=== PATIENT | female | born 1955 | race Caucasian/White ===

== ENCOUNTER 2020-07-20 07:30 | Outpatient (CLI) | payer BC, SELFPAY ==
--- NOTE | ~2020-07-20 | MM_ITS ---
EXAMINATION: MM screening alana BI w chi HISTORY: Screening TECHNIQUE: Craniocaudal and mediolateral oblique 3-D tomosynthesis images were obtained and synthetic 2-D images were generated. CAD analysis was submitted and interpreted. COMPARISON: Comparison to multiple prior studies sequentially, with oldest reviewed study dated 05/14. BREAST PARENCHYMAL COMPOSITION: There are scattered areas of fibroglandular density. FINDINGS: There is no evidence of suspicious mass, calcification, or architectural distortion to sugg est malignancy in either breast. There has been no suspicious interval change. IMPRESSION: 1. No mammographic evidence of malignancy. 2. Recommend routine screening mammography in one year. BI-RADS Category 1: Negative Reviewed, dictated and finalized at location A. GER
== END 2020-07-20 07:31 | disposition home or self-care (01) ==
PROVIDERS: PCP Physician Assistant; Visit Provider Physician Assistant
DX: Z12.31 Encounter for screening mammogram for malignant neoplasm of breast (principal)
CPT/HCPCS: 77063; 77067

== ENCOUNTER → 2020-09-23 10:57 | Outpatient (CLI) | payer BC, SELFPAY ==
--- NOTE | ~2020-09-23 | XR_ITS ---
EXAMINATION: XR shoulder RT min 2V DATE: 09/23/2020 11:14 INDICATION: Chronic right shoulder pain. TECHNIQUE: 4 views of right shoulder were obtained. COMPARISON: None. FINDINGS: Bone alignment is normal. No fracture. There is mild osteoarthritis of glenohumeral joint a nd acromioclavicular joint. IMPRESSION: 1. Polyarticular osteoarthritis. Reviewed, dictated and finalized at location A. VENEER TAPER
== END ==
PROVIDERS: PCP Physician Assistant; Visit Provider Physician Assistant
DX: M19.011 Primary osteoarthritis, right shoulder (principal)
CPT/HCPCS: 73030

== ENCOUNTER 2021-10-08 08:34 | Outpatient (CLI) | payer BC, SELFPAY ==
--- NOTE | ~2021-10-08 | MM_ITS ---
EXAMINATION: MM screening [facility] BI w chi HISTORY: Screening mammogram TECHNIQUE: Craniocaudal and mediolateral oblique 3-D tomosynthesis images were obtained and synthetic 2-D images were generated. CAD analysis was submitted and interpreted. COMPARISON: Serial mammograms dating back to 05/28/2013. BREAST PARENCHYMAL COMPOSITION: There are scattered areas of fibroglandular density. FINDINGS: There is asymmetry in the lower left breast on MLO view. Diagnostic left mammogram is recom mended, with ultrasound if required. Otherwise there is no evidence of suspicious mass, calcification, or architectural distortion to sugg est malignancy in either breast. There has been no other suspicious interval change. IMPRESSION: 1. Left mammographic asymmetry 2. Diagnostic left mammogram is recommended, with ultrasound if required BI-RADS Category 0: Incomplete: Needs additional imaging evaluation. Reviewed, dictated and finalized at location A. INE BINDING FOLDER
== END 2021-10-08 08:35 | disposition home or self-care (01) ==
LOC: ANHIMG 08:36
PROVIDERS: PCP Physician Assistant; Visit Provider Physician Assistant
DX: Z12.31 Encounter for screening mammogram for malignant neoplasm of breast (principal); R92.8 Other abnormal and inconclusive findings on diagnostic imaging of breast
CPT/HCPCS: 77063; 77067

== ENCOUNTER 2021-11-12 00:40 | Day surgery (SDC) | payer BC, SELFPAY ==
[2021-11-01 14:56] VITALS: BMI 26.7
--- NOTE | 2021-11-12 07:35 | WPDANESEPPF ---
Anes - Initial Pre Proc Eval Procedure: Operation Date: 11/12/21 08:30 Proposed Procedures p Screening Colonoscopy - Rojelio Rae MD Date/Time: 11/12/21 07:35 Surgeon: Rojelio Rae MD Pre Op Diagnosis: neoplasm screening, hx of colon polyps Patient Data Age: 66 Gender: F Height: 1.65 m Weight: 73 kg Allergies Allergy/AdvReac Type Severity Reaction Status Date / Time erythromycin base Allergy Severe Nausea and Verified 11/12/21 07:40 Vomiting meperidine Allergy Severe Dizziness, Verified 11/12/21 07:40 Hot flashes, N/V Home Medications Medication Instructions Recorded Confirmed Type ascorbic acid (vitamin C) 500 mg PO DAILY 11/01/21 11/12/21 History cholecalciferol (vitamin D3) 25 mcg PO DAILY 11/01/21 11/12/21 History [Vitamin D3] coQ10 (ubiquinol) 200 mg PO DAILY 11/01/21 11/12/21 History risankizumab-rzaa [Skyrizi] See Rx Instructions .ROUTE .COMPLEX 11/01/21 11/12/21 History rosuvastatin 20 mg PO DAILY 11/01/21 11/12/21 History Patient hx anesthesia problems: none Family hx anesthesia problems: none Results Review: All pre-operative results and documents have been reviewed as part of the pre-operative evaluation. [facility] Past Medical History Medical History (Updated 11/12/21 @ 07:50 by Rojelio Rae MD) Hyperlipidemia Overweight (BMI 25.0-29.9) Psoriatic arthritis Social History Social History Smoking status: Former smoker Tobacco type: cigarettes Alcohol intake: current Alcohol use details: 2 drinks monthly Living arrangements: alone Spiritual care concerns: No Anes - Eval Final PreProcedure Day of Procedure 11/12/21 07:35 Patient weight: overweight Heart: regular rate and rhythm Lungs: clear to auscultation and normal air movement Airway: Mallampati scale class II Neurological: alert and oriented Last oral intake: >/= 8 hours ASA classification: II Emergent: no Anesthetic plan: proceed Anesthesia type and monitoring: general GIVS Results Review: All pre-operative results and documents have been reviewed as part of the pre-operative evaluation. Informed Consent: The patient's anesthetic plan and its attendant risks and benefits were discussed with the patient/family/POA. Questions were solicited and answers provided to the satisfaction of the patient/family/POA.
[2021-11-12 07:41] VITALS: BP 124/66; PULSE 77; RESP 16; TEMP 37.1; O2SAT 98
--- NOTE | 2021-11-12 07:49 | WPDGICN ---
Assessment and Plan Assessment and plan (1) Colon cancer screening: Code(s): Z12.11 - Encounter for screening for malignant neoplasm of colon Status: Acute Assessment and Plan: Colonoscopy with possible biopsy or polypectomy or cautery or injection of substances. (2) Personal history of colonic polyps: Code(s): Z86.010 - Personal history of colonic polyps Status: Acute GI Consult Note Consult date/time: 11/12/21 07:49 HPI: Candy Camp is a 66 year old female referred for colon cancer screening. She had an adenomatous polyp removed about 5 years ago. She has had no significant change in bowel habits nor blood in the stools. Review of Systems Review of Systems: All systems reviewed & are unremarkable except as noted in HPI and below PMFSH Past Medical History Medical History (Updated 11/12/21 @ 07:50 by Rojelio Rae MD) Hyperlipidemia Overweight (BMI 25.0-29.9) Psoriatic arthritis Social History Social History Smoking status: Former smoker Tobacco type: cigarettes Alcohol intake: current Alcohol use details: 2 drinks monthly Living arrangements: alone Spiritual care concerns: No Meds Home Medications and Allergies Home Medications Medication Instructions Recorded Confirmed Type ascorbic acid (vitamin C) 500 mg PO DAILY 11/01/21 11/12/21 History cholecalciferol (vitamin D3) 25 mcg PO DAILY 11/01/21 11/12/21 History [Vitamin D3] coQ10 (ubiquinol) 200 mg PO DAILY 11/01/21 11/12/21 History risankizumab-rzaa [Skyrizi] See Rx Instructions .ROUTE .COMPLEX 11/01/21 11/12/21 History rosuvastatin 20 mg PO DAILY 11/01/21 11/12/21 History Allergies Allergy/AdvReac Type Severity Reaction Status Date / Time erythromycin base Allergy Severe Nausea and Verified 11/12/21 07:40 Vomiting meperidine Allergy Severe Dizziness, Verified 11/12/21 07:40 Hot flashes, N/V Vital Signs Vital Signs - 24 hr 11/12/21 07:41 Temperature 37.1 C Pulse Rate 77 Respiratory Rate 16 Blood Pressure 124/66 Pulse Oximetry 98 Exam Const: General: alert Orientation/consciousness: patient oriented x3 Resp: Auscultation: clear to auscultation bilaterally Cardio: Rhythm: regular rhythm GI: GI Palp: Yes Soft to palpation and No Tenderness to palpation present (GI) Neuro: General: patient oriented x3
[2021-11-12] MEDS: LACTATED RINGERS 1,000 ML 150 ML IV CONT (07:51)
[2021-11-12 08:35] VITALS: BP 111/69; PULSE 74; RESP 22; O2SAT 100
[2021-11-12 08:45] VITALS: BP 112/67; PULSE 69; RESP 19; O2SAT 100
[2021-11-12 08:55] VITALS: BP 104/65; PULSE 69; RESP 19; O2SAT 99
== END 2021-11-12 09:09 | disposition home or self-care (01) ==
PROVIDERS: PCP Physician Assistant; Visit Provider Internal Medicine Gastroenterology
PROC: 0DJD8ZZ Inspection of Lower Intestinal Tract, Via Natural or Artificial Opening Endoscopic (ICD-10-PCS; CPT 45378; principal; 2021-11-12 08:30)
DX: Z12.11 Encounter for screening for malignant neoplasm of colon (principal); D12.3 Benign neoplasm of transverse colon; Z80.0 Family history of malignant neoplasm of digestive organs; E78.5 Hyperlipidemia, unspecified; L40.50 Arthropathic psoriasis, unspecified; Z87.891 Personal history of nicotine dependence
CPT/HCPCS: 45385; 45380; 88305; J2704; J7120

== ENCOUNTER 2021-11-19 13:52 | Outpatient (CLI) | payer BC, SELFPAY ==
--- NOTE | ~2021-11-19 | MMUS_ITS ---
EXAMINATION: MM diagnostic alana LT w chi, US breast LT limited HISTORY: Follow-up left breast asymmetry TECHNIQUE: Additional 3-D tomosynthesis images of the left breast were performed and synthetic 2-D im ages were generated. CAD analysis was submitted and interpreted. High resolution Limited left breast ultrasound was performed. COMPARISON: Comparison to multiple prior studies sequentially, with oldest reviewed study dated 08/26. BREAST PARENCHYMAL COMPOSITION: Breast composed of scattered areas of fibroglandular density. FINDINGS: MAMMOGRAPHIC FINDINGS: There are no suspicious masses, calcifications or architectural distortion in the left breast to sugg est malignancy. ULTRASOUND: Limited left breast ultrasound: Normal heterogeneous echotexture without focal mass. IMPRESSION: 1. No evidence for malignancy in the left breast. 2. Routine yearly screening mammogram and regular clinical breast examination are recommended. BI-RADS Category 1: Negative Reviewed, dictated and finalized at location A. IMPRESSION: 1. No evidence for malignancy in the left breast. 2. Routine yearly screening mammogram and regular clinical breast examination a re recommended. BI-RADS Category 1: Negative
== END 2021-11-19 13:53 | disposition home or self-care (01) ==
PROVIDERS: PCP Physician Assistant; Visit Provider Physician Assistant
DX: R92.8 Other abnormal and inconclusive findings on diagnostic imaging of breast (principal)
CPT/HCPCS: 76642; 77061; 77065; G0279

== ENCOUNTER 2023-03-17 09:45 | Outpatient (CLI) | payer OTHER, SELFPAY ==
--- NOTE | ~2023-03-17 | DEXA_ITS ---
Bone Density Report Name: HECTOR TA Age: 67 Sex: Female Ethnicity: White Date of : 1955 Indication: postmenopausal; screening for osteoporosis; Referring Provider: RENZO, ALICE Study: Bone densitometry was performed. Exam Date: March 17, 2023 Accession number: [id number] Bone Density: Region BMD T-score Z-score Classification AP Spine(L1-L4) 1.031 -0.1 1.8 Normal Femoral Neck (Left) 0.675 -1.6 0.0 Osteopenia Total Hip (Left) 0.857 -0.7 0.6 Normal Femoral Neck (Right) 0.666 -1.6 0.0 Osteopenia Total Hip (Right) 0.852 -0.7 0.6 Normal Total Hip Mean 0.855 -0.7 0.6 Normal World Health Organization criteria for BMD impression classify patients as: Normal (T-score at or above -1.0), Osteopenia (T-score between -1.0 and -2.5), or Osteoporosis (T-score at or below -2.5). 10-year Fracture Risk(1): Major Osteoporotic Fracture 9.7% Hip Fracture 1.2% Reported Risk Factors: [place] (), Neck BMD=0.666, BMI=26.6 (1) FRAX(R) Version 3.08. Fracture probability calculated for an untreated patient. Fracture probability may be lower if the patient has received treatment. Clinical Information Provided by Patient: Has used the following medications: Vitamin D Patient maximum height was 65.0 Menopause Age: 46 No regular weight bearing exercise Onset of menses at age 15 Number of children 1 Impression: The patient has low bone mass, based on the Left Femoral Neck T-score. The patient has an estimated ten-year risk of hip fracture of 1.2% and an estimated ten-year risk of major fracture of 9.7%, based on the WHO FRAX algorithm. Discussion: BONE DENSITY IS LOW AT ONE OR MORE SKELETAL SITES. This patient's lowest T-score is low at one or more skeletal sites. It meets the World Health Organization's (WHO) criteria for ?low bone mass? (T-score between -1.0 and -2.5). The patient's 10-year risk of fracture as calculated by FRAX is less than the threshold where pharmacological therapy is recommended by the National Osteoporosis Foundation (NOF). However, all treatment decisions require clinical judgment and consideration of individual patient factors, including patient preferences, comorbidities, previous drug use, risk factors not captured in the FRAX model (e.g., frailty, falls, vitamin D deficiency, increased bone turnover, interval significant decline in bone density) and possible under or overestimation of fracture risk by FRAX. The patient should follow a healthful lifestyle (good nutrition with adequate calcium and vitamin D, and appropriate weight-bearing exercise). Follow-Up: Consider repeating this study in 2 to 3 years to reassess this patient's status, or sooner if there is some new clinical indication. Reported by: LOUISE on 03/17/2023 10:18:00 AM.
--- NOTE | ~2023-03-17 | MM_ITS ---
EXAMINATION: MM screening alana BI w chi HISTORY: Screening mammogram TECHNIQUE: Craniocaudal and mediolateral oblique 3-D tomosynthesis images were obtained and synthetic 2-D images were generated. CAD analysis was submitted and interpreted. COMPARISON: November 19, 2021 diagnostic left mammogram and limited left breast ultrasound examination October 08, 2021, 07/20/2020 bilateral screening mammogram examinations BREAST PARENCHYMAL COMPOSITION: There are scattered areas of fibroglandular density. FINDINGS: There is no evidence of suspicious mass, calcification, or architectural distortion to sugg est malignancy in either breast. There has been no suspicious interval change. IMPRESSION: 1. No mammographic evidence of malignancy. 2. Recommend routine screening mammography in one year. BI-RADS Category 1: Negative Reviewed, dictated and finalized at location A.
== END 2023-03-17 09:46 | disposition home or self-care (01) ==
LOC: ANHIMG 09:47
PROVIDERS: PCP Physician Assistant; Visit Provider Physician Assistant
DX: Z12.31 Encounter for screening mammogram for malignant neoplasm of breast (principal); Z78.0 Asymptomatic menopausal state; M85.852 Other specified disorders of bone density and structure, left thigh; M85.851 Other specified disorders of bone density and structure, right thigh
CPT/HCPCS: 77063; 77067; 77080

== ENCOUNTER 2024-03-20 09:36 | Outpatient (CLI) | payer OTHER, SELFPAY ==
--- NOTE | ~2024-03-20 | MM_ITS ---
EXAMINATION: MM screening alana BI w chi HISTORY: Screening TECHNIQUE: Craniocaudal and mediolateral oblique 3-D tomosynthesis images were obtained and synthetic 2-D images were generated. CAD analysis was submitted and interpreted. COMPARISON: Comparison to multiple prior studies sequentially, with oldest reviewed study dated 02/03. BREAST PARENCHYMAL COMPOSITION: Not dense: There are scattered areas of fibroglandular density. FINDINGS: There is no evidence of suspicious mass, calcification, or architectural distortion to sugg est malignancy in either breast. There has been no suspicious interval change. IMPRESSION: 1. No mammographic evidence of malignancy. 2. Recommend routine screening mammography in one year. BI-RADS Category 1: Negative Reviewed, dictated and finalized at location B.
== END 2024-03-20 09:37 | disposition home or self-care (01) ==
LOC: ANHIMG 09:39
PROVIDERS: PCP Physician Assistant; Visit Provider Physician Assistant
DX: Z12.31 Encounter for screening mammogram for malignant neoplasm of breast (principal)
CPT/HCPCS: 77063; 77067

== ENCOUNTER 2025-04-17 07:24 | Outpatient (CLI) | payer MEDICARE, SELFPAY ==
--- OUTSIDE RECORDS SUMMARY | 1999-08-17 08:00 | XMS_ITS | Continuity of Care Document ---
Author Organization [facility] Address [address] [place] [address] Phone Care Team Providers Care Meat And Poultry Inspector Name Role Phone Sasha Brooks Unavailable Unavailable Advance Directives Directive Yes / No Effective Date File Name No Information Encounters Encounter Description Practice Location Reason(s) For Visit Diagnoses Date Provider Providers Copied on Encounter [facility], [address], [place], [place], [id number], [place] tel:[phone] [facility] No Information [phone] Cecilia Baez. [address] , [address], [place], [address], [place]. tel:[phone] Family History Family Member Type Diagnosis Age At Onset No Information Payers Payer name Insurance type Covered republican ID Authormollya sharmila(s) [employer] SOI CI [id number] Social History Type Description Quantity Date Captured Comments Sex Female Smoking Status No Information Chief Complaint And Reason For Visit No Information Reason For Referral Reason For Referral No Information History Of Present Illness Encounter Date Complaint History Of Prese nt Illness No Information Functional Status Date Functional Assessmen t No Information Instructions Date Instruction Additional Infor mation No Information Assessments Type Assessment Date No Information Patient Care Teams Name Effective Dates (start - stop) Status Members No Information
--- NOTE | ~2025-04-17 | MM_ITS ---
EXAMINATION: MM screening [facility] BI w [facility] HISTORY: Screening TECHNIQUE: Craniocaudal and mediolateral oblique 3-D tomosynthesis images were obtained and synthetic 2-D images were generated. CAD analysis was submitted and interpreted. COMPARISON: Mammograms from 03/20/2024 and 03/17/2023 BREAST PARENCHYMAL COMPOSITION: There are scattered areas of fibroglandular density. FINDINGS: There is no evidence of suspicious mass, calcification, or architectural distortion to suggest malignancy. There has been no suspicious interval change. IMPRESSION: 1. No mammographic evidence of malignancy. Recommend routine screening mammography in one year. BI-RADS Category 2: Benign finding(s) Reviewed, dictated and finalized at location Q. IMPRESSION: 1. No mammographic evidence of malignancy. Recommend routine screening mammogra phy in one year. BI-RADS Category 2: Benign finding(s)
--- OUTSIDE RECORDS SUMMARY | 2025-04-17 07:32 | XMS_ITS | Encounter Summary ---
Author Organization [facility] Facility Care Team Providers Care Rope Walker Name Role Phone Elda Dent Primary Care Provider [phone]- [phone] Encounter Details Date Type Department Care Team (Latest Contact Info) Description 08/10/2016 Orders Only MMG CLINCONV ProviderJoann MD [address] [place] [address] Social History Tobacco Use Types Packs/Day Years Used Date Smoking Tobacco: Former Comments Unknown Sex and Gender Information Value Date Recorded Sex Assigned at Not on file Legal Sex Female 8:55 PM CONSTRUCTION CONTRACTOR Gender Identity Not on file Sexual Orientation Not on file documented as of this encounter Plan of Treatment Not on file documented as of this encounter Procedures Procedure Name Priority Date/Time Associated Diagnosis Comments COLONOSCOPY - SCAN 08/10/2016 12 :00 AM CONSTRUCTION CONTRACTOR documented in this encounter Results * COLONOSCOPY - SCAN (08/10/2016 12:00 AM CONSTRUCTION CONTRACTOR) Narrative 08/10/2016 12:00 AM CONSTRUCTION CONTRACTOR Ordered by an unspecified provider. Historical Provider Final Res ult documented in this encounter Visit Diagnoses Not on filedocumented in this encounter Additional Health Concerns Infection Onset Date Last Indicated Resolved Time COVID: Suspected 03/05/2020 03/05/2020 03/19/2020 3:07 AM CDT COVID: Suspected 06/30/2020 06/30/2020 07/01/2020 6:51 PM CONSTRUCTION CONTRACTOR Respiratory Infection (PROSPER), contact + droplet Comment:Automatically added due to negative COVID-19 result. 07/01/2020 07/01/2020 07/15/2020 3:0 8 AM CONSTRUCTION CONTRACTOR COVID: Suspected 11/08/2023 11/08/2023 11/08/2023 12:44 PM CDT COVID: Suspected 12/22/2023 12/22/2023 12/22/2023 11:37 AM CDT documented as of this encounter Care Teams Rope Walker Relationship Specialty Start Date End Date Elda Dent PA [address] [facility] [address] [place] [address] PCP - General Internal Medicine 01/09/19 documented as of this encounter
--- OUTSIDE RECORDS SUMMARY | 2025-04-17 07:32 | XMS_ITS | Encounter Summary ---
Author Organization [facility] Facility Care Team Providers Care Test Engine Operator Name Role Phone Elda Dent Primary Care Provider +1- [phone] Encounter Details Date Type Department Care Team (Latest Contact Info) Description 07/11/2016 Orders Only MMG CLINCONV ProviderJoann MD [address] [place] [address] Social History Tobacco Use Types Packs/Day Years Used Date Smoking Tobacco: Former Comments Unknown Sex and Gender Information Value Date Recorded Sex Assigned at Not on file Legal Sex Female 8:55 PM SHEAR GRINDER OPERATOR HELPER Gender Identity Not on file Sexual Orientation Not on file documented as of this encounter Plan of Treatment Not on file documented as of this encounter Procedures Procedure Name Priority Date/Time Associated Diagnosis Comments COLONOSCOPY - SCAN 07/11/2016 12 :00 AM SHEAR GRINDER OPERATOR HELPER documented in this encounter Results * COLONOSCOPY - SCAN (07/11/2016 12:00 AM SHEAR GRINDER OPERATOR HELPER) Narrative 07/11/2016 12:00 AM SHEAR GRINDER OPERATOR HELPER Ordered by an unspecified provider. Historical Provider Final Res ult documented in this encounter Visit Diagnoses Not on filedocumented in this encounter Additional Health Concerns Infection Onset Date Last Indicated Resolved Time COVID: Suspected 03/05/2020 03/05/2020 03/19/2020 3:07 AM CDT COVID: Suspected 06/30/2020 06/30/2020 07/01/2020 6:51 PM SHEAR GRINDER OPERATOR HELPER Respiratory Infection (PROSPER), contact + droplet Comment:Automatically added due to negative COVID-19 result. 07/01/2020 07/01/2020 07/15/2020 3:0 8 AM SHEAR GRINDER OPERATOR HELPER COVID: Suspected 11/08/2023 11/08/2023 11/08/2023 12:44 PM CDT COVID: Suspected 12/22/2023 12/22/2023 12/22/2023 11:37 AM CDT documented as of this encounter Care Teams Test Engine Operator Relationship Specialty Start Date End Date Elda Dent PA [address] [facility] [address] [place] [address] PCP - General Internal Medicine 01/09/19 documented as of this encounter
--- OUTSIDE RECORDS SUMMARY | 2025-04-17 07:32 | XMS_ITS | Encounter Summary ---
Author Organization [facility] Healthcare Address [address] [place] [address] Care Team Providers Care Corporate Strategist Name Role Phone Elda Dent Primary Care Provider +1- [phone] Encounter Details Date Type Department Care Team (Latest Contact Info) Description 03/20/2025 Results Follow-Up [facility] Medical [facility] Family Medicine [address] [place] [address] Elda Dent PA [address] [place] [address] XR Spine Thoracic 3 Vw, XR Spine Cervical Complete 4 Or 5 Vw, Comprehensive metabolic panel, Additional followed-up results: 7 Social History Tobacco Use Types Packs/Day Years Used Date Smoking Tobacco: Former Cigarettes Q uit: 2001 Smokeless Tobacco: Never Alcohol Use Standard Drinks/Week Comments Yes 0 (1 standard drink = 0.6 oz pur e alcohol) AUDIT-C Answer Date Recorded Q1: How often do you have a drink containing alc ohol? Monthly or less 01/15/2025 Q2: How many drinks containi ng alcohol do you have on a typical day when you are drinking? 1 or 2 01/15/2025 Q3: How often do you have si x or more drinks on one occasion? Less than monthly 01/15/2025 PHQ-2 Answer Date Recorded PHQ-2 Total Score 0 01/15/2025 PHQ-9 Answer Date Recorded PHQ-9 Total Score 0 01/15/2025 Comments No Sex and Gender Information Value Date Recorded Sex Assigned at Not on file Legal Sex Female 8:55 PM CARGO AND CONTAINER INSPECTOR Gender Identity Not on file Sexual Orientation Not on file Occupation Industry Job Start Date Job End Date [employer] Not on file Not on file Not on file documented as of this encounter Plan of Treatment Not on file documented as of this encounter Visit Diagnoses Not on filedocumented in this encounter Care Teams Corporate Strategist Relationship Specialty Start Date End Date Elda Dent PA [address] [address] PCP - General Internal Medicine 01/09/19 documented as of this encounter
--- OUTSIDE RECORDS SUMMARY | 2025-04-17 07:33 | XMS_ITS | Encounter Summary ---
Author Organization [facility] Address [address] [place] [address] Care Team Providers Care Customer Supply Chain Analyst Name Role Phone Koffi Travis MD Primary Care Provider + Encounter Details Date Type Department Care Team (Late st Contact Info) Description 10/08/2019 Lab Requisition [facility] [address] [facility] [facility] [place] [id number] Kari Guan DO [address] [facility] [address] [place] [address] Social History Tobacco Use Types Packs/Day Years Used Date Smoking Tobacco: Never Assessed Comments Unknown Sex and Gender Information Value Date Recorded Sex Assigned at Not on file Legal Sex Female 3:32 PM DIRECTOR OF OUTREACH Gender Identity Not on file Sexual Orientation Not on file documented as of this encounter Plan of Treatment Not on file documented as of this encounter Procedures Procedure Name Priority Date/Time Associated Diagnosis Comments DERMATOPATHOLOGY Routine 10/07/2019 12:0 0 AM DIRECTOR OF OUTREACH documented in this encounter Results * DERMATOPATHOLOGY (10/07/2019 12:00 AM DIRECTOR OF OUTREACH) Case Report Dermatopathology Report Case: [id number] Authorizing Provider: Kari Guan DO Collected: 10/07/2019 12:00 AM Ordering Location: [facility] Lab Received: 10/08/2019 10:08 AM Pathologist: Zahra Finley MD Specimen: Skin, right FA 0 1:01 PM DIRECTOR OF OUTREACH DERMATOPATHOLOGY LABORATORY Final Diagnosis Specimen A. SKIN, right FA: BENIGN VERRUCOUS KERATOSIS, INFLAMED (L82.1) EPIDERMAL NECROSIS SUGGESTIVE OF EXCORIATION (L98.499) 0 1:01 PM DIRECTOR OF OUTREACH DERMATOPATHOLOGY LABORATORY at [address] [facility] Clinical History ISK R/O NMSC. 0 1:01 PM [facility] DERMATOPATHOLOGY LABORATORY Gross Description Specimen A: Received is one formalin filled container labeled with the patient's name and designated right FA. The specimen consists of a shave measuring 1j6v9in. Jar 0. 0 1:01 PM [facility] DERMATOPATHOLOGY LABORATORY Microscopic Description Specimen A. SKIN, right FA: Sections show hyperkeratosis, papillomatosis, hypergranulosis, and acanthosis. Inflammatory cells are present within the dermis. These histological findings can be seen in a verruca vulgaris or a seborrheic keratosis. The epidermis is focally necrotic and covered with a scale-crust. There is fibrin at the base. 0 1:01 PM [facility] DERMATOPATHOLOGY LABORATORY Disclaimer An external and internal positive and negative controls are appropriate for the histochemical, immunohistochemical and immunofluorescence stain(s) in this case (if any), except where stated explicitly. The performance characteristics of the stain(s) cited in this report were developed and its performance characteristic determined by the Dermatopathology Laboratory at [facility], directed by Dr. Estelita Canales. These tests need not be, and therefore are not, approved by the [place] Food and Drug Administration. The tests are used for clinical purposes. Billing Codes Specimen Charges Stain Charges 85104 1 0 1:01 PM [facility] DERMATOPATHOLOGY LABORATORY Embedded Images 0 1:01 PM [facility] DERMATOPATHOLOGY LABORATORY Pathology/Cytolog y TISSUE SPECIMEN FROM SKIN / Unknown 10/07/2019 10/08/2019 10:08 AM [facility] us Kari Guan DO LAB - PATHOLOGY/CYTOLOGY ORDERABLES Final Result DERMATOPATHOLOGY LABORATORY [facility] - Department of Dermatology [address] [facility], [address] [place] [address], [facility] [phone] documented in this encounter Visit Diagnoses Not on filedocumented in this encounter Care Teams Customer Supply Chain Analyst Relationship Specialty Start Date End Date Koffi rTavis MD [address] [address] PCP - General 10/07/19 documented as of this encounter
--- OUTSIDE RECORDS SUMMARY | 2025-04-17 07:33 | XMS_ITS | Clinical Summary ---
Author Organization [facility] Address [address] [place] [address] Care Team Providers Care Complex Director Name Role Phone Koffi Travis MD Primary Care Provider + Source Comments [facility] [employer],non-owned Affiliates and Associated Physician Practices is amultiple site organization consisting of ambulatory clinics and hospital sitesin [place], [place], [place] and [place]. This disclosure is being madepursuant to the Care Everywhere program and may not contain all information available regarding this patient. Last updated 18.[facility] [employer] Social History Tobacco Use Types Packs/Day Years Used Date Smoking Tobacco: Never Assessed Comments Unknown Sex and Gender Information Value Date Recorded Sex Assigned at Not on file Legal Sex Female 3:[address]IC[employer] Gender Identity Not on file Sexual Orientation Not on file Plan of Treatment Health Maintenance Due Date Last Done Comments BONE DENSITY TESTING 1956 COLOGUARD (AGES 45-75) - COL ON CA SCREENING 1956 COLON MONITORING 1956 COLONOSCOPY - COLON CA SCREENING 1956 CT COLONOGRAPHY - COLON CA SCREENING 1956 Colorectal Cancer Screening 1956 FIT - COLON CA SCREENING 1956 FLEX SIG - COLON CA SCREENING 1956 LIPID TESTING 1956 MAMMOGRAM 1956 HEPATITIS C SCREENING 04/07/1974 DTAP/TDAP/TD VACCINES (1 - Tdap) 1975 PNEUMOCOCCAL VACCINE 50+ (1 of 1 - PCV) 2006 ZOSTER VACCINE (1 of 2) 2006 COVID-19 VACCINE (1 - 2023-2 5 season) 2024 DEPRESSION SCREENING 08/14/2024 INFLUENZA VACCINE (#1) 2025 Respiratory Syncytial Virus (RSV) Vaccine Pt: or over 60 yrs (1 - 1-dose 75+ series) 2031 HEPATITIS B VACCINE Aged Out No longe r eligible based on patient's age to complete this topic HIB VACCINE Aged Out No longer eligi ble based on patient's age to complete this topic HPV VACCINE Aged Out No longer eligi ble based on patient's age to complete this topic MENINGOCOCCAL (Group B) VACC INE SHARED DECISION-MAKING Aged Out No longer eligibl e based on patient's age to complete this topic MENINGOCOCCAL GROUPS A/C/Y/W VACCINE Aged Out No longer eligible b ased on patient's age to complete this topic Insurance ANTH Care Teams Complex Director Relationship Specialty Start Date End Date Koffi Travis MD [address] [address] PCP - General 10/07/19
--- OUTSIDE RECORDS SUMMARY | 2025-04-17 07:33 | XMS_ITS | Clinical Summary ---
Author Organization [facility] Address [address] [place] [id number] Care Team Providers Care Inspector [employer] Name Role Phone Elda Dent Primary Care Provider [phone] Allergies Active Allergy Reactions Criticality Noted Date Comments Erythromycin Unknown,Nausea & Vomiting Low 01/10/20 19 Meperidine Unknown,Other (See comments) Low 024 Medications Skyrizi 150 mg/mL syringe 05/24/2021 Activ e coenzyme Q10 10 mg capsule Take 1 capsule (10 mg total) by mouth daily Active cholecalciferol (VITAMIN D-3) 5,000 unit capsule Take 1 capsule (5,000 Units total) by mouth daily Active cranberry 500 mg capsule Take 500 mg by mouth daily Active levothyroxine (SYNTHROID) 50 mcg tabletIndication s:Hypothyroidism , unspecified type Take 1 tablet (50 mcg total) by mouth daily 90 tablet 4 07/26/2024 Active rosuvastatin (CRESTOR) 40 mg tabletIndication s:Hypertriglycer idemia Take 1 tablet (40 mg total) by mouth daily 30 tablet 11 07/26/2024 07/26/20 25 Active benzonatate (TESSALON) 100 mg capsuleIndicatio ns:Cough Take 1 capsule (100 mg total) by mouth 3 (three) times a day as needed for cough 42 capsule 09/03/2024 Active Active Problems Problem Noted Date Diagnosed Date Benign essential tremor 01/26/2025 Subacute cough 09/09/2024 Assessment & Plan (09/09/2024 12:00 AM [employer]): Patient has persistent cough that just isn't resolving. Will send out Robitussin with codeine see if it settles it down and if symptoms continue to persist beyond the next week or [address] of the chest. Annual physical exam 07/17/2024 Assessment & Plan (07/17/2024 8:21 AM [employer]): Encouraged healthy lifestyle, good nutrition and exercise. Encouraged Calcium and Vitamin D and weight bearing exercise for bone health. Reviewed immunizations Reviewed age appropirate screenings. Hypothyroidism 01/15/2024 Assessment & Plan (07/17/2024 8:21 AM [employer]): Continue levothyroxine 25 mcg. Monitor labs. Assessment & Plan (01/15/2024 9:35 PM CDT): Continue levothyroxine. Monitor labs. 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 She is up on her vaccines. Discussed RSV and COVID and answered her questions for her consideration. At this point she declines Assessment & Plan (01/15/2024 9:35 PM CDT): Patient has a biologic for her psoriasis creating immunocompromise state. Fatigue 07/02/2021 Assessment & Plan (07/17/2024 8:21 AM [employer]): Probably multifactorial. Check labs and followup to re-evaluate Assessment & Plan (01/15/2024 9:34 PM CDT): Probably multifactorial. Check labs and followup to re-evaluate Assessment & Plan (10/17/2023 9:07 PM [employer]): Probably multifactorial. Check labs and followup to re-evaluate Assessment & Plan (11/05/2021 8:30 PM CDT): Probably multifactorial. Check labs and followup to re-evaluate Assessment & Plan (07/02/2021 6:35 PM [employer]): Probably multifactorial. Check labs and followup to re-evaluate Hyperglycemia 07/02/2021 Assessment & Plan (07/17/2024 8:21 AM [employer]): Pre-diabetes/hyperglycemia is a precursor to Dm. Stressed importance of working on diet (decrease your simple sugars and one carbohydrate with each meal) and increase you exercise to achieve weight loss and this will help prevent you from progressing to diabetes. Assessment & Plan (10/17/2023 9:07 PM [employer]): Pre-diabetes/hyperglycemia is a precursor to Dm. Stressed importance of working on diet (decrease your simple sugars and one carbohydrate with each meal) and increase you exercise to achieve weight loss and this will help prevent you from progressing to diabetes. Assessment & Plan (05/16/2023 12:02 AM CDT): Pre-diabetes/hyperglycemia is a precursor to Dm. Stressed importance of working on diet (decrease your simple sugars and one carbohydrate with each meal) and increase you exercise to achieve weight loss and this will help prevent you from progressing to diabetes. Assessment & Plan (12/12/2022 6:53 PM CDT): Check labs Assessment & Plan (11/05/2021 8:30 PM CDT): Pre-diabetes/hyperglycemia is a precursor to Dm. Stressed importance of working on diet (decrease your simple sugars and one carbohydrate with each meal) and increase you exercise to achieve weight loss and this will help prevent you from progressing to diabetes. Assessment & Plan (07/02/2021 6:36 PM [employer]): Check labs Chronic right shoulder pain 09/21/2020 Assessment & Plan (09/21/2020 8:07 AM [employer]): Check xray. Start daily NSAID (she prefers otc) Start PT. Ice/heat prn If sxs worsen or dont resolve will consider further evaluation with imaging vs Ortho/Rheum BMI 26.0-26.9,adult 05/24/2019 Assessment & Plan (01/15/2025 7:17 AM CDT): Weight/BMI is in healthy range. Continue healthy lifestyle to maintain. Assessment & Plan (10/15/2021 7:17 AM [employer]): Weight/BMI is in healthy range. Continue healthy lifestyle to maintain. Assessment & Plan (11/02/2019 7:35 PM CDT): Weight/BMI is in healthy range. Continue healthy lifestyle to maintain. Assessment & Plan (07/22/2019 3:39 PM [employer]): Weight/BMI is in healthy range. Continue healthy lifestyle to maintain. Assessment & Plan (05/24/2019 10:13 PM CDT): Weight/BMI is in healthy range. Continue healthy lifestyle to maintain. Assessment & Plan (05/24/2019 8:49 AM CDT): Weight/BMI is in healthy range. Continue healthy lifestyle to maintain. Trigeminal neuralgia 05/24/2019 Assessment & Plan (07/22/2019 4:03 PM [employer]): Sxs essentially have resolved. Will get a little sensation when a cool breeze runs across her cheek, but very rare. Monitor. Assessment & Plan (05/24/2019 10:31 PM CDT): Sxs are improving/resolving. Reviewed may return. Monitor. Assessment & Plan (05/24/2019 10:11 PM CDT): Probable diagnosis--- ? Pimple like tender mass in front of the ear. Will start Keflex Medrol Dosepak. Reviewed course of disease. Followup in a few weeks to reasses. Reviewed s/s TIA/stroke which are not present today. Vasomotor symptoms due to menopause 05/24/2019 Assessment & Plan (07/22/2019 4:05 PM [employer]): Happy with Effexor 37.5mg. Feels like sxs are well controlled. Will call if control tapers and consider increase to 75mg. Assessment & Plan (05/24/2019 10:33 PM CDT): Discussed vasomotor sxs/treatment options. She stopped Estradiol about 6 months ago and vasomotor sxs have returned. Reviewed options that are off lable including gabapentin, Clonidine and Effexor. Reviewed risks, benefit, alternatives, side effects and proper use. Start Effexor 37.5mg daily. F.u 4-6 weeks to titrate up as needed. Hypertriglyceridemia 05/24/2019 Assessment & Plan (07/17/2024 8:21 AM [employer]): Encouraged patient to follow low fat/low chol diet like the Mediterranean diet. Increase good fats in the diet. Increase exercise. Monitor labs as needed. Continue Crestor 20 Assessment & Plan (05/16/2023 12:02 AM CDT): Encouraged patient to follow low fat/low chol diet like the Mediterranean diet. Increase good fats in the diet. Increase exercise. Monitor labs as needed. Continue Crestor. It was increase to 20 mg last year and patient is tolerating well Assessment & Plan (12/12/2022 6:53 PM CDT): Encouraged patient to follow low fat/low chol diet like the Mediterranean diet. Increase good fats in the diet. Increase exercise. Monitor labs as needed. Continue Crestor 20 and Co Q 10 Assessment & Plan (05/15/2022 7:52 PM CDT): Encouraged patient to follow low fat/low chol diet like the Mediterranean diet. Increase good fats in the diet. Increase exercise. Monitor labs as needed. Continue Crestor 20. Labs need to be updated Assessment & Plan (11/05/2021 8:30 PM CDT): Encouraged patient to follow low fat/low chol diet like the Mediterranean diet. Increase good fats in the diet. Increase exercise. Monitor labs as needed. Has tolerated Crestor 10 but her values still are not in range. Increase to 20 mg. May take 2 of the 10 mg tablets until her supply is exhausted and will transition to a 20 mg tablet taking 1 daily. Recheck labs in about 3-4 months including LFTs. Assessment & Plan (08/07/2021 1:57 PM [employer]): Encouraged patient to follow fat/low chol diet like the Mediterranean diet. Increase good fats in the diet. Increase exercise. Monitor labs as needed. Recently increased the Crestor. Will recheck labs in 3-4 months for stability and improvement. Assessment & Plan (07/02/2021 6:35 PM [employer]): Encouraged patient to follow fat/low chol diet like the Mediterranean diet. Increase good fats in the diet. Increase exercise. Monitor labs as needed. LDL is significantly improved. Triglycerides are still elevated. Increase Crestor to 20 mg daily. May take 2 10 mg tablets until they are gone and then will send new prescription for 20 mg tablet daily will recheck labs in about 4-6 months for stability. Assessment & Plan (07/27/2020 3:50 PM [employer]): Encouraged patient to follow fat/low chol diet like the Mediterranean diet. Increase good fats in the diet. Increase exercise. Monitor labs as needed. Menopause 05/24/2019 Assessment & Plan (12/12/2022 6:53 PM CDT): Check DEXA Vitamin D deficiency 05/24/2019 Assessment & Plan (07/17/2024 8:21 AM [employer]): Supplement Assessment & Plan (01/15/2024 9:34 PM CDT): Supplement Assessment & Plan (05/16/2023 12:02 AM CDT): Supplement Assessment & Plan (12/12/2022 6:53 PM CDT): Supplement Assessment & Plan (07/27/2020 3:49 PM [employer]): Supplement otc Assessment & Plan (07/22/2019 4:03 PM [employer]): Continue supplement otc Psoriasis 05/24/2019 Assessment & Plan (07/17/2024 8:20 AM [employer]): Patient has psoriasis is followed by Dermatology. On Skyrizi and feels like her skin is very well controlled. She is noticing some pain in her right knee. Her daughter who is a nurse practitioner with pain management did an x-ray that is not showing any osteoarthritis so could be presentation psoriatic arthritis. Will continue to monitor closely Assessment & Plan (01/15/2024 9:34 PM CDT): Psoriasis is managed by Dermatology. Still on the [place] easy and doing well Assessment & Plan (05/16/2023 12:02 AM CDT): Continue per Dermatology. Currently on scared busy with good control. Assessment & Plan (12/12/2022 6:53 PM CDT): Continue per Dermatology. Tolerating screening busy with good results Assessment & Plan (05/15/2022 7:52 PM CDT): Continue per Rheumatology. She seems to be doing well in the [facility] Assessment & Plan (09/21/2020 8:06 AM [employer]): Continue per Derm. Reviewed she could be having some psoriatic arthritis sxs and is so may need referral to Rheum--- will monitor Assessment & Plan (07/27/2020 3:50 PM [employer]): Continue per dermatology Assessment & Plan (07/22/2019 4:04 PM [employer]): Continue per Derm On Enbrel and doing well History of colon polyps 05/24/2019 Overview (05/24/2019): Dr. Rae ---->repeat 2020 Assessment & Plan (08/07/2021 1:58 PM [employer]): History of colon polyps. Due to repeat in 2020. Dr. Rae did her last 1. She would like to stay at [facility] so will refer to Dr. Campbell Assessment & Plan (07/27/2020 3:50 PM [employer]): Due 07/2021 Assessment & Plan (07/22/2019 4:04 PM [employer]): History of polyps. Due to repeat in 2020 Bone neoplasm 05/08/2013 Resolved Problems Problem Noted Date Diagnosed Date Resolved Date Medicare annual wellness visit, initial 01/15/2024 07/17/2024 Assessment & Plan (01/15/2024 9:35 PM CDT): Encouraged healthy lifestyle, good nutrition and exercise. Encouraged Calcium and Vitamin D and weight bearing exercise for bone health. Reviewed immunizations. Reviewed age appropirate screenings. Medicare Wellness Documentation is completed within the chart Bilateral hip pain 01/15/2024 Assessment & Plan (01/15/2024 9:36 PM CDT): Patient is complaining of bilateral hip pain is a little more lateral but still will check x-rays bilaterally. She is already noting response from using anti- inflammatory on a regular basis so encouraged to try naproxen 12 hour at bedtime to see if that is still on board when she gets up to exercise and if this helps make things much more comfortable. If symptoms persist may consider referral to ortho pending the x- rays. Left foot pain 01/15/2024 07/17/2024 Assessment & Plan (01/15/2024 9:36 PM CDT): Left foot pain. No known injury but has increased her exercise regimen including classes that require a lot of hopping and jumping. Will check an x-ray to rule out any type of fracture ice to the area and continue anti-inflammatory. Breast cancer screening by mammogram 01/15/2024 07/17/2024 Assessment & Plan (01/15/2024 9:36 PM CDT): Mammogram order provided Lipid screening 10/17/2023 01/15/2024 Assessment & Plan (10/17/2023 9:07 PM [employer]): Check labs BMI 27.0-27.9,adult 05/15/2023 01/16/20 25 Assessment & Plan (08/29/2024 1:44 PM [employer]): Weight/BMI is in healthy range. Continue healthy lifestyle to maintain. Assessment & Plan (07/17/2024 7:11 AM [employer]): Weight/BMI is in healthy range. Continue healthy lifestyle to maintain. Assessment & Plan (01/15/2024 9:34 PM CDT): Weight/BMI is in healthy range. Continue healthy lifestyle to maintain. Assessment & Plan (10/17/2023 9:06 PM [employer]): Weight/BMI is in healthy range. Continue healthy lifestyle to maintain. Assessment & Plan (05/15/2023 3:30 PM CDT): Weight/BMI is in healthy range. Continue healthy lifestyle to maintain. Weight/BMI is in healthy range. Continue healthy lifestyle to maintain. Annual physical exam 05/15/2023 024 Assessment & Plan (05/16/2023 12:02 AM CDT): Encouraged healthy lifestyle, good nutrition and exercise. Encouraged Calcium and Vitamin D and weight bearing exercise for bone health. Reviewed immunizations Reviewed age appropirate screenings. BMI 26.0-26.9,adult 12/12/2022 05/15/20 23 Assessment & Plan (12/12/2022 4:24 PM CDT): Weight/BMI is in healthy range. Continue healthy lifestyle to maintain. Need for pneumococcal 20-matias ent conjugate vaccination 12/12/2022 05/15/2023 Assessment & Plan (12/12/2022 6:54 PM CDT): Prevnar 20 updated in office today Welcome to Medicare preventive visit 12/11/2022 05/15/2023 Assessment & Plan (12/12/2022 6:54 PM CDT): Encouraged healthy lifestyle, good nutrition and exercise. Encouraged Calcium and Vitamin D and weight bearing exercise for bone health. Reviewed immunizations. Reviewed age appropirate screenings. Medicare Wellness Documentation is completed within the chart Acute non-recurrent pansinusitis 07/14/2022 12/11/2022 Assessment & Plan (07/14/2022 7:31 AM [employer]): Start antibiotic, antihistamine (Claritin OR Zyrtec), Mucinex 12hour or Cheratussin and Steroid nasal spray (Flonase). Push fluids. Rest. Supportive care. If sxs worsen or don\'t improve, pt is to followup in the office. Dysuria 04/29/2022 12/11/2022 Assessment & Plan (04/29/2022 1:39 PM CDT): Pt presents with dysuria. Urine dip completed. Send urine culture. Antibiotic to pharmacy. Reviewed bladder care. BMI 27.0-27.9,adult 04/25/2022 12/13/19 Assessment & Plan (04/25/2022 4:25 PM CDT): Weight/BMI is in healthy range. Continue healthy lifestyle to maintain. Colon cancer screening 08/07/202112/11 Assessment & Plan (08/07/2021 1:59 PM [employer]): Due to repeat colonoscopy. Refer to Dr. Campbell Breast cancer screening by mammogram 08/07/2021 05/15/2023 Assessment & Plan (12/12/2022 6:53 PM CDT): Mammogram order provided Assessment & Plan (08/07/2021 1:59 PM [employer]): Mammogram order provided BMI 27.0-27.9,adult 07/02/2021 10/16/19 22 Assessment & Plan (08/07/2021 1:58 PM [employer]): Weight/BMI is in healthy range. Continue healthy lifestyle to maintain. Assessment & Plan (07/02/2021 12:00 PM [employer]): Weight/BMI is in healthy range. Continue healthy lifestyle to maintain. BMI 27.0-27.9,adult 07/27/2020 07/02/20 21 Assessment & Plan (09/21/2020 6:59 AM [employer]): Weight/BMI is in healthy range. Continue healthy lifestyle to maintain. Assessment & Plan (07/27/2020 3:33 PM [employer]): Weight/BMI is in healthy range. Continue healthy lifestyle to maintain. Annual physical exam 07/27/2020 022 Assessment & Plan (08/07/2021 1:58 PM [employer]): Encouraged healthy lifestyle, good nutrition and exercise. Encouraged Calcium and Vitamin D and weight bearing exercise for bone health. Reviewed immunizations Reviewed age appropirate screenings. Assessment & Plan (07/27/2020 3:50 PM [employer]): Encouraged healthy lifestyle, good nutrition and exercise. Encouraged Calcium and Vitamin D and weight bearing exercise for bone health. Reviewed immunizations Reviewed age appropirate screenings. Other fatigue 07/27/2020 08/07/2021 Assessment & Plan (07/02/2021 6:35 PM [employer]): Probably multifactorial. Check labs and followup to re-evaluate Assessment & Plan (07/27/2020 3:50 PM [employer]): Probably multifactorial. Check labs and followup to re-evaluate Diabetes mellitus screening 07/27/2020 08/07/2021 Assessment & Plan (07/27/2020 3:50 PM [employer]): Check labs Dermatitis 2020 07/17/2024 Assessment & Plan (10/17/2023 9:06 PM [employer]): Persistent dermatitis of her face. She is tried multiple products and it just seems to be getting worse. Discussed discontinuing all products and using Ivory soap. Advised we could wait to see if just discontinuing the products made a difference but she would like some intervention. Warned against using a steroid cream on the face due to the potential for bleaching so will do a Medrol Dosepak. Will have her monitor closely and give a update in a week or 2. If symptoms worsen she is any other concerns she may call at any time Assessment & Plan (2020 8:29 PM CDT): Probably Rhus. Remove all items with resin still on them. Triamcinolone to hot spots. Discussed using IM steroid with [facility] Psoriasis/Enbrel as she will having increased risk for infection. She will hold one dose of the Enbrel and monitor closely but she is miserable enough that she wants to assume the risk. Call if sxs worsen or don't resolve. Flu-like symptoms 01/07/2020 2020 Assessment & Plan (01/07/2020 8:56 PM CDT): History flu like sxs -- Pt wants a COVID antibody test. Reviewed with patient the limitations of the test at this point---unknown exactly what a positive will mean regarding immunity. Patient voices understanding and desires to proceed. Patient also understands unknown coverage and cost and still wants to proceed. Acute non-recurrent maxillary sinusitis 11/02/2019 01/07/2020 Assessment & Plan (11/02/2019 7:34 PM CDT): Start antibiotic, antihistamine (Claritin OR Zyrtec), Mucinex 12hour and Steroid nasal spray (Flonase). Push fluids. Rest. Supportive care. If sxs worsen or don\'t improve, pt is to followup in the office. Antibiotic and steroid x 5 days as sxs/cough have been persistent. If sxs worsen or don't resolve, will need further workup. If patient spikes a fever, has difficulty breathing, increased coughing and has trouble treating with otc medications s/he is to contact the office for further evaluation. Viral illness 10/16/2019 09/21/2020 Assessment & Plan (10/16/2019 2:46 PM [employer]): Mucinex as directed as needed. Instructed to increase clear liquids, rest, and vitamin C in diet. Advised to sleep with head elevated, use a cool mist vaporize and Vicks VapoRub at bedtime. Recommended off work through today (note given), may return to work tomorrow if feels well enough. Recommended follow-up with PCP if symptoms worsen, don't resolve, or new symptoms develop. Annual physical exam 07/22/2019 020 Assessment & Plan (07/22/2019 4:04 PM [employer]): Encouraged healthy lifestyle, good nutrition and exercise. Encouraged Calcium and Vitamin D and weight bearing exercise for bone health. Reviewed immunizations Reviewed age appropirate screenings. BMI 25.0-25.9,adult 05/16/2019 05/24/20 19 Encounters Date Type Department Care Team Description 03/20/2025 Results Follow-Up [facility] [address] [place] [phone] Elda Dent PA XR Spine Thoracic 3 Vw, XR Spine Cervical Complete 4 Or 5 Vw, Comprehensive metabolic panel, Additional followed-up results: 7 01/23/2025 Nurse Triage [facility] [address] [place] [address] [place] [phone] Elda Dent PA 01/15/2025 9:15 AM CDT Ancillary Procedure [facility] at [address] [id number] Neck pain 01/15/2025 9:00 AM CDT Lab [facility] at [address] [phone] 01/15/2025 9:00 AM CDT Ancillary Procedure [facility] at [address] [phone] Chronic midline thoracic back pain 01/15/2025 8:53 AM CDT - 01/15/2025 11:59 PM CDT Hospital Encounter [facility] [address] [place] [address] Hypertriglyceridemia; Hyperglycemia; Fatigue, unspecified type; Vitamin D deficiency Discharge Disposition: Discharge to home or self care 01/15/2025 7:00 AM CDT Office Visit [facility] [address] [address] [place] [address] Elda Dent PA Medicare annual wellness visit, subsequent (Primary Dx); Chronic midline thoracic back pain; Neck pain; Benign essential tremor; Hypothyroidism, unspecified type; Hypertriglyceridemia; Hyperglycemia; Vitamin D deficiency; Fatigue, unspecified type; Breast cancer screening by mammogram; BMI 26.0-26.9,adult from Last 3 Months Immunizations Immunization Administration Dates Next Due Influenza, Quadrivalent, Allyssa l Culture-based MDCK, Preservative Free, Antibiotic Free, Intramuscular 05/15/2020,05/11/2019,04/21/2018,05/26 Influenza, Quadrivalent, Hig h Dose, Preservative Free, Intrr 06/14/2023 Influenza, Quadrivalent, Spl it, Intramuscular 05/11/2019 Influenza, Quadrivalent, Spl it, Preservative Free, Intramuscular 05/20/2015 Influenza, Trivalent, High D ose, Split, Preservative Free, Intramuscular 07/02/2024 Influenza, Unspecified 08/14/2022(Deferr ed: Patient Refused),06/13/2022,04/27/2021, 020,05/30/2017 Pfizer SARS-CoV-2 Monovalent Vaccination (12+ Yrs) PURPLE 06/13/2022,07/28/2021,12/31/2020,12/10 Pneumococcal Conjugate Pcv20 12/12/2022 ZOSTER Recombinant 10/15/2021 Surgical History Surgery Date Site/Laterality Comments APPENDECTOMY HYSTERECTOMY TUMOR EXCISION x 3 TONSILLECTOMY TUMOR REMOVAL Right right leg tumor removal Family History Medical History Relation Name Comments Breast cancer Sister Relation Name Status Comments Mother Sister Social History Tobacco Use Types Packs/Day Years Used Date Smoking Tobacco: Former Cigarettes Q uit: 2000 Smokeless Tobacco: Never Tobacco Cessation:Counseling Given: Not Answered Alcohol Use Standard Drinks/Week Comments Yes 0 [...] on file Legal Sex Female 8:55 PM [employer] Gender Identity Not on file Sexual Orientation Not on file Occupation Industry Job Start Date Job End Date [employer] Not on file Not on file Not on file Obstetrics History Last Filed Vital Signs Vital Sign Reading Time Taken Comments Blood Pressure 108/70 01/15/2025 7:16 AM CDT Pulse 72 01/15/2025 7:16 AM CDT Temperature 36.7 C (98 F) 01/15/2025 7:16 AM CDT Respiratory Rate 18 06/27/2024 3:39 PM [employer] Oxygen Saturation 98% 01/15/2025 7:16 AM CDT Inhaled Oxygen Concentration - - Weight 73.4 kg (161 lb 12.8 oz) 01/15/2025 7:16 AM CDT Height 165.1 cm (5' 5) 01/15/2025 7:16 AM CDT Body Mass Index 26.92 01/15/2025 7:16 AM CDT Plan of Treatment Health Maintenance Due Date Last Done Comments Hepatitis C Screening 1955 DTaP/Tdap/Td Vaccine (1 - Tdap) 1967 Hepatitis B Screening 1974 Covid-19 Vaccine (2023-2 5 season) 2024 06/13/2022, 06/13/2022, 07/28/2021, Additional history exists Osteoporosis Screening-Bone Density Scan 03/17/2025 03/17/2023 Breast Cancer Screening-Mammogram 03/21/2025 03/21/2024, 03/17/2023, 10/08/2021, Additional history exists Influenza Vaccine (#1) 2025 , 06/14/2023, 06/13/2022, Additional history exists Depression Screening 01/15/2026 01/15/2025, 01/15/2025, 08/29/2024, Additional history exists Fall Risk Assessment 01/15/2026 01/15/2025, 07/17/2024, 01/15/2024, Additional history exists Well Visit 65+ 01/15/2026 01/15/2025, 11/2023, 01/15/2024, Additional history exists Colon Cancer Screening-Colonoscopy 11/12/2026 11/12/2021, 08/05/2016, 08/03/2016 Zoster Vaccine Completed 10/15/2021, 06/18/2021 Colon Cancer Screening-CT Colonography Discontinued 11/12/2021, 08/05/2016, 08/03/2016 Colon Cancer Screening-DNA Stool Discontinued 11/12/2021, 08/05/2016, 08/03/2016 Colon Cancer Screening-FIT Discontinued 11/12, 08/05/2016, 08/03/2016 Colon Cancer Screening-Sigmoidoscopy Discontinued 11/12/2021, 08/05/2016, 08/03/2016 Pneumococcal vaccine 65+ Completed 12/12/2022, 04/14 Procedures Procedure Name Priority Date/Time Associated Diagnosis Comments XR SPINE THORACIC 3 VIEWS Schedule Routine, Read Routine (OP Routine) 01/15/2025 9:15 AM CDT Chronic midline thoracic back pain XR SPINE CERVICAL COMPLETE 4 OR 5 VW Schedule Routine, Read Routine (OP Routine) 01/15/2025 9:15 AM CDT Neck pain EGFR Routine 01/15/2025 8:53 AM CDT Hypertriglyceridem ia DIFFERENTIAL AUTO Routine 01/15/2025 8:5 3 AM CDT Fatigue, unspecified type LIPID PANEL Routine 01/15/2025 8:53 AM CDT Hypertriglyceridem ia VITAMIN B12 Routine 01/15/2025 8:53 AM CDT Fatigue, unspecified type VITAMIN D 25 HYDROXY Routine 01/15/2025 8:53 AM CDT Vitamin D deficiency CBC WITH AUTO DIFFERENTIAL Routine 01/15/2025 8:53 AM CDT Fatigue, unspecified type HEMOGLOBIN A1C Routine 01/15/2025 8:53 AM CDT Hyperglycemia COMPREHENSIVE METABOLIC PANEL Routine 01/15/2025 8:53 AM CDT Hypertriglyceridem ia SCREENING MAMMOGRAM BILATERAL W EDGARDO Schedule Routine, Read Routine (OP Routine) 03/21/2024 7:57 AM CDT Breast cancer screening by mammogram DEXA AXIAL SKELETON BONE DENSITY 1 OR MORE SITES Schedule Routine, Read Routine (OP Routine) 03/17/2023 Menopause COLONOSCOPY Routine 11/12/2021 from Last 3 Months or Most Recently Relevant to Health Maintenance Results * XR Spine Thoracic 3 Vw (01/15/2025 9:15 AM CDT) Anatomical Region Laterality Modality Spine N/A Digital Radiogra phy 01/15/2025 10:3 1 AM CDT Narrative 01/15/2025 10:32 AM CDT EXAM DESCRIPTION: XR SPINE THORACIC 3 VIEWS; XR SPINE CERVICAL COMPLETE 4 OR 5 VW REASON FOR STUDY: back pain Pt complains of neck and upper back pain for some time, worsening recently. No prior spinal surgeries, no known injury. No chest surgery. Former smoker quit 23 years ago. Smoked for 15 years. No cancer,heart disease,copd,asthma. TECHNIQUE: Thoracic spine three views, cervical spine four views COMPARISON: None FINDINGS: No fracture is seen in the thoracic spine. The pedicles appear symmetric. There is no fracture or prevertebral soft tissue swelling in the cervical spine. There is disc space narrowing and endplate osteophyte formation at C5-C6 and C6-C7. There is grade 1 retrolisthesis of C5 on C6. There is mild dextrocurvature of the cervical vertebral bodies. There is narrowing of the bilateral C5-C6 osseous neural foramina. IMPRESSION: No acute osseous abnormality in the thoracic spine or cervical spine. Cervical spondylosis. THIS IS AN ELECTRONICALLY VERIFIED FINAL REPORT 01/15/2025 10:32 AM - Electronically signed by Danielito Acsota M.D., JR T: Report ID: [id number] Reading Location: [place] [address] Procedure Note Danielito Acosta MD - 01/15/2025 EXAM DESCRIPTION: XR SPINE THORACIC 3 VIEWS; XR SPINE CERVICAL COMPLETE 4OR 5 VW REASON FOR STUDY: back pain Pt complains of neck and upper back pain for some time, worseningrecently. No prior spinal surgeries, no known injury. No chest surgery. Former smokerquit 23 years ago. Smoked for 15 years. No cancer,heart disease,copd,asthma. TECHNIQUE: Thoracic spine three views, cervical spine four views COMPARISON: None FINDINGS: No fracture is seen in the thoracic spine. The pedicles appear symmetric. There is no fracture or prevertebral soft tissue swelling inthe cervical spine. There is disc space narrowing and endplate osteophyte formation at C5-C6 and C6-C7. There is grade 1 retrolisthesis of C5 onC6. There is mild dextrocurvature of the cervical vertebral bodies. There is narrowing of the bilateral C5-C6 osseous neural foramina. IMPRESSION: No acute osseous abnormality in the thoracic spine or cervical spine. Cervical spondylosis. THIS IS AN ELECTRONICALLY VERIFIED FINAL REPORT 01/15/2025 10:32 AM - Electronically signed by Danielito Acosta M.D., JR T: Report ID: [id number] Reading Location: [id number] Elda GOODRICH [facility] XR PROCEDURES Final Re sult * XR Spine Cervical Complete 4 Or 5 Vw (01/15/2025 9:15 AM CDT) Anatomical Region Laterality Modality Spine N/A Digital Radiogra phy 01/15/2025 10:3 1 AM CDT Narrative 01/15/2025 10:32 AM CDT EXAM DESCRIPTION: XR SPINE THORACIC 3 VIEWS; XR SPINE CERVICAL COMPLETE 4 OR 5 VW REASON FOR STUDY: back pain Pt complains of neck and upper back pain for some time, worsening recently. No prior spinal surgeries, no known injury. No chest surgery. Former smoker quit 23 years ago. Smoked for 15 years. No cancer,heart disease,copd,asthma. TECHNIQUE: Thoracic spine three views, cervical spine four views COMPARISON: None FINDINGS: No fracture is seen in the thoracic spine. The pedicles appear symmetric. There is no fracture or prevertebral soft tissue swelling in the cervical spine. There is disc space narrowing and endplate osteophyte formation at C5-C6 and C6-C7. There is grade 1 retrolisthesis of C5 on C6. There is mild dextrocurvature of the cervical vertebral bodies. There is narrowing of the bilateral C5-C6 osseous neural foramina. IMPRESSION: No acute osseous abnormality in the thoracic spine or cervical spine. Cervical spondylosis. THIS IS AN ELECTRONICALLY VERIFIED FINAL REPORT 01/15/2025 10:32 AM - Electronically signed by Danielito Acosta M.D. T: Report ID: [id number] Reading Location: [id number] Procedure Note Danielito Acosta MD - 01/15/2025 EXAM DESCRIPTION: XR SPINE THORACIC 3 VIEWS; XR SPINE CERVICAL COMPLETE 4OR 5 VW REASON FOR STUDY: back pain Pt complains of neck and upper back pain for some time, worseningrecently. No prior spinal surgeries, no known injury. No chest surgery. Former smokerquit 23 years ago. Smoked for 15 years. No cancer,heart disease,copd,asthma. TECHNIQUE: Thoracic spine three views, cervical spine four views COMPARISON: None FINDINGS: No fracture is seen in the thoracic spine. The pedicles appear symmetric. There is no fracture or prevertebral soft tissue swelling inthe cervical spine. There is disc space narrowing and endplate osteophyte formation at C5-C6 and C6-C7. There is grade 1 retrolisthesis of C5 onC6. There is mild dextrocurvature of the cervical vertebral bodies. There is narrowing of the bilateral C5-C6 osseous neural foramina. IMPRESSION: No acute osseous abnormality in the thoracic spine or cervical spine. Cervical spondylosis. THIS IS AN ELECTRONICALLY VERIFIED FINAL REPORT 01/15/2025 10:32 AM - Electronically signed by Danielito Acosta M.D., JR T: Report ID: [id number] Reading Location: [place] [address] us Elda GOODR[facility] IMG XR PROCEDURES Final Re sult * eGFR (01/15/2025 8:53 AM CDT) eGFR 76 >=60 mL/min/1. 73 m2 Comment: Interpretive Data Reference Interval Normal >/= 90 mL/min/1.73m2 Mildly decreased* 60 - 89 mL/min/1.73m2 Mildly to moderately decreased 45 - 59 mL/min/1.73m2 Moderately to severely decreased 30 - 44 mL/min/1.73m2 Severely decreased 15 - 29 mL/min/1.73m2 Kidney Failure < 15 mL/min/1.73m2 *Relative to young adult level Estimated glomerular filtration rate is determined by the 2020 CKD-EPI equation recommended by the National Kidney Foundation (A Unifying Approach to GFR Estimation: Recommendations of the NKF-ASK Task Force on Reassessing the Inclusion of Race in Diagnosing Kidney Disease, JASN 202). The CKD-EPI equation should not be used for patients with unstable renal function and has not been validated in children and those over 70. Current interpretive data was last reviewed 2021. Blood 01/15/2025 8:53 AM CDT 01/15/2025 7:18 PM CDT us Elda GOODRICH LAB BLOOD ORDERABLES Final Result RONALDO [address] Department [place] [address] [phone] * Differential, auto (01/15/2025 8:53 AM CDT) Neutrophil abs 3.67 1.50 - 6.50 K/cumm Imm gran abs 0.01 0.00 - 0.10 K/cumm [facility] Lymphocyte abs 2.56 0.80 - 3.30 K/cumm [facility] Monocyte abs 0.54 0.20 - 0.80 K/cumm [facility] Eosinophil abs 0.27 0.00 - 0.50 K/cumm [facility] Basophil abs 0.06 0.00 - 0.10 K/cumm [facility] Neutrophil pct 51.7 % [facility] Comment: Interpretive Data Percent cell count reference ranges are not reported, since discordance with absolute values may lead to misinterpretation of CBC data. Current Interpretive Data was last revised on 2017. Imm gran pct 0.1 % C[facility] Comment: Interpretive Data Percent cell count reference ranges are not reported, since discordance with absolute values may lead to misinterpretation of CBC data. Current Interpretive Data was last revised on 2017. Lymphocyte pct 36.0 % C[facility] Comment: Interpretive Data Percent cell count reference ranges are not reported, since discordance with absolute values may lead to misinterpretation of CBC data. Current Interpretive Data was last revised on 2017. Monocyte pct 7.6 % C[facility]ER Comment: Interpretive Data Percent cell count reference ranges are not reported, since discordance with absolute values may lead to misinterpretation of CBC data. Current Interpretive Data was last revised on 2017. Eosinophil pct 3.8 % [facility] Comment: Interpretive Data Percent cell count reference ranges are not reported, since discordance with absolute values may lead to misinterpretation of CBC data. Current Interpretive Data was last revised on 2017. Basophil pct 0.8 % C[facility]ER Comment: Interpretive Data Percent cell count reference ranges are not reported, since discordance with absolute values may lead to misinterpretation of CBC data. Current Interpretive Data was last revised on 2017. Blood 01/15/2025 8:53 AM CDT 01/15/2025 7:13 PM CDT Elda GOODRICH LAB BLOOD ORDERABLES Final Result Performing Organization Address City/[facility] Co de Phone Number RONALDO TREVINO [address] [facility] Clinical Data [place], [place] [id number] * (ABNORMAL) CBC with auto differential (01/15/2025 8:53 AM CDT) Pathologist [facility] WBC 7.11 3.80 - 9.90 K/cumm Hgb 14.2 11.9 - 15.5 g/dL [facility] Hct 45.8(H) 35.6 - 45.5 % [facility] Plt 277 150 - 400 K/cumm [facility] MPV 9.3 9.1 - 12.3 fL [facility] RBC 4.91 3.90 - 5.20 M/cumm [facility] MCV 93.3 81.3 - 96.4 fL [facility] MCH 28.9 27.1 - 33.3 pg [facility] MCHC 31.0(L) 32.3 - 35.7 g/dL [facility] RDW CV 13.7 11.1 - 14.9 % [facility] RDW SD 46.5 35.7 - 48.1 fL [facility] NRBC abs 0.00 0.00 - 0.01 K/cumm [facility] Blood 01/15/2025 8:53 AM CDT 01/15/2025 7:13 PM CDT Elda GOODRICH LAB BLOOD ORDERABLES Final Result Performing Organization Address City/[facility]/ZIP Co de Phone Number RONALDO TREVINO [address] [address] Department [place] [address] * Vitamin D 25 hydroxy (01/15/2025 8:53 AM CDT) [facility] Vitamin D 25-OH 66 30 - 80 ng/mL Blood 01/15/2025 8:53 AM CDT 01/15/2025 7:13 PM CDT Elda GOODRICH LAB BLOOD ORDERABLES Final Result Performing Organization Address [facility] de Phone Number [facility] [address] [address] [facility] [place] [address] * (ABNORMAL) Hemoglobin A1c (01/15/2025 8:53 AM CDT) Pathologist [facility] Hgb A1C 5.7(H) 4.0 - 5.6 % Estimated Average Glucose 117 mg/dL RONALDO TREVINO Comment: The ADA recommends reporting an estimated Average Glucose (eAG) with all Hemoglobin A1c results using the equation derived from a study of 507 normal and diabetic adults. Minority populations were underrepresented and children were not included. (Diabetes Care 31:2761-2688, 2008). The eAG is not equivalent to a fasting glucose. Blood 01/15/2025 8:53 AM CDT 01/15/2025 7:13 PM CDT Elda GOODRICH LAB BLOOD ORDERABLES Final Result Performing Organization Address [facility] Phone Number [facility] [address] [address] [facility] [place] [address] * Vitamin B12 (01/15/2025 8:53 AM CDT) [facility] Vitamin B12 685 230 - 1,250 pg/mL Blood 01/15/2025 8:53 AM CDT 01/15/2025 7:13 PM CDT Elda OGODRICH LAB BLOOD ORDERABLES Final Result Performing Organization Address [facility] Co de Phone Number [facility] [address] [address] [facility] [place] [address] * (ABNORMAL) Lipid panel (01/15/2025 8:53 AM CDT) [facility] Cholesterol 117 30 - 199 mg/dL Comment: Interpretive Data Ages < or = 19 years Acceptable: <170 mg/dL Borderline high: 170-199 mg/dL High: >or= 200 mg/dL Ages > or = 20 years Desirable: <200 mg/dL Borderline high: 200-239 mg/dL High: >or= 240 mg/dL Literature References: 1. Expert Panel on Integrated Guidelines for Cardiovascular Health and Risk Reduction in Children and Adolescents. Pediatrics 2011;128:S213 2. NCEP Expert Panel. Circulation 2004;110:227 Current Interpretive Data was last revised on 2018. Triglycerides 205(H) <=149 mg/dL RONALDO Comment: Interpretive Data Ages < or = 9 years Acceptable: <75 mg/dL Borderline high: 75-99 mg/dL High: >or= 100 mg/dL Ages 10 to 20 years Acceptable: <90 mg/dL Borderline high: 90-129 mg/dL High: >or= 130 mg/dL Ages > or = 20 years Desirable: <150 mg/dL Borderline high: 150-199 mg/dL High: 200-499 mg/dL Very high: >or= 499 mg/dL Literature References: 1. Expert Panel on Integrated Guidelines for Cardiovascular Health and Risk Reduction in Children and Adolescents. Pediatrics 2011;128:S213 2. NCEP Expert Panel. Circulation 2004;110:227 Current Interpretive Data was last revised on 2018. HDL 40 >=40 mg/dL RONALDO Comment: Interpretive Data Ages < or = 19 years Acceptable: >45 mg/dL Borderline low: 40-45 mg/dL Low: <40 mg/dL Ages > or = 20 years Desirable: >or= 60 mg/dL Low: <40 mg/dL Literature References: 1. Expert Panel on Integrated Guidelines for Cardiovascular Health and Risk Reduction in Children and Adolescents. Pediatrics 2011;128:S213 2. NCEP Expert Panel. Circulation 2003;110:227 Current Interpretive Data was last revised on 2018. LDL, calculated 44 <=129 mg/dL RONALDO Comment: Interpretive Data Ages < or = 19 years Acceptable: <110 mg/dL Borderline high: 110-129 mg/dL High: >or= 130 mg/dL Ages > or = 20 years Optimal: <100 mg/dL Near optimal: 100-129 mg/dL Borderline high: 130-159 mg/dL High: >160 mg/dL Calculated using the Eric LDL-C estimating equation. This equation was implemented on 2024. Prior to this date LDL-C was estimated using the Friedewald equation. Literature References: 1. Expert Panel on Integrated Guidelines for Cardiovascular Health and Risk Reduction in Children and Adolescents. Pediatrics 2011;128:S213 2. NCEP Expert Panel. Circulation 2004;110:227 3. Hernesto M et al. CHRIS Cardiol. 2020 December 12;5(5):540-548. doi: 10.1001/jamacardio.2020.0013 Current Interpretive Data was last revised on 2024. Non-HDL Cholesterol 77 mg/dL [facility] Comment: Interpretive Data Ages < or = 19 years Acceptable: <120 mg/dL Borderline high: 120-144 mg/dL High: >145 mg/dL Ages > or = 20 years When triglycerides are >200 mg/dL, Non-HDL cholesterol is a secondary target of therapy with treatment goals that are 30 mg/dL greater than the LDL cholesterol target. Literature References: 1. Expert Panel on Integrated Guidelines for Cardiovascular Health and Risk Reduction in Children and Adolescents. Pediatrics 2011;128:S213 2. NCEP Expert Panel. Circulation 2004;110:227 Current Interpretive Data was last revised on 2018. Chol/HDL ratio 3 [facility] Blood 01/15/2025 8:53 AM CDT 01/15/2025 7:13 PM CDT Elda GOODRICH LAB BLOOD ORDERABLES Final Result [facility] [address] Department [place] [address] * Comprehensive metabolic panel (01/15/2025 8:53 AM CDT) [facility] Signature Sodium 141 135 - 145 mmol/L Potassium, pl 4.8 3.3 - 4.9 mmol/L [facility] Chloride 104 97 - 110 mmol/L [facility] CO2 26 22 - 32 mmol/L [facility] Anion gap 11 2 - 15 mmol/L [facility] BUN 15 6 - 25 mg/dL [facility] Creatinine 0.84 0.60 - 1.10 mg/dL [facility] Glucose 112 70 - 199 mg/dL CERNER Comment: Interpretive Data Fasting glucose >/= 126 mg/dl is diagnostic for diabetes. Fasting is defined as no caloric intake for at least 8 hours. Fasting glucose between 100 mg/dl to 125 mg/dl is diagnostic of prediabetes. In a patient with classic symptoms of hyperglycemia or hyperglycemic crisis, a random glucose >/= 200 mg/dl is diagnostic for diabetes. In the absence of unequivocal hyperglycemia, results should be confirmed by repeat testing. The classification and Diagnosis of Diabetes Diabetes Care 2021; 46: S19-S40. Current interpretive data was last revised 2022. Calcium 9.9 8.5 - 10.3 mg/dL [facility] Bilirubin, total 0.4 0.1 - 1.2 mg/dL [facility] Protein, pl 7.7 6.5 - 8.5 g/dL [facility] Albumin 4.5 3.5 - 5.0 g/dL [facility] Alk phos 62 40 - 130 Units/L [facility] ALT 28 7 - 45 Units/L [facility] AST 40 10 - 45 Units/L [facility] Blood 01/15/2025 8:53 AM CDT 01/15/2025 7:13 PM CDT us Elda GOODRICH LAB BLOOD ORDERABLES Final Result RONALDO TREVINO [address] [place] [address] * Screening Mammogram Bilateral W Edgardo (03/21/2024 7:57 AM CDT) Anatomical Region Laterality Modality Breast Bilateral Mammography us Elda GOODRICH G MAMMO PROCEDURES Final Result * (ABNORMAL) Dexa Axial Skeleton Bone Density 1 or 2 Site (03/17/2023) SCRIBED DXA T-SCORE -0.1 SCRIBED DXA Z-SCORE 1.8 SCRIBED DXA BMD 1.031 Anatomical Region Laterality Modality Body N/A Radiographic Richa ging us Elda GOODR[facility] DXA PROCEDURES Final R esult * Colonoscopy (11/12/2021) Anatomical Region Laterality Modality Other us Historical Provider ENDOSCOPY PROCEDURES Maria Antonia l Result from Last 3 Months or Most Recently Relevant to Health Maintenance Insurance [employer] MEDICARE GOLD Care Teams Inspector [employer] Relationship Specialty Start Date End Date Elda Dent PA [address] [place] [address] PCP - General Internal Medicine 01/09/19
--- OUTSIDE RECORDS SUMMARY | 2025-04-17 07:33 | XMS_ITS | Encounter Summary ---
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 Historical Provider Final Res ult documented in this encounter Visit Diagnoses Not on filedocumented in this encounter Additional Health Concerns Infection Onset Date Last Indicated Resolved Time COVID: Suspected 03/05/2020 03/05/2020 03/19/2020 3:07 AM CDT COVID: Suspected 06/30/2020 06/30/2020 07/01/2020 6:51 PM CAPACITY PLANNING MANAGER Respiratory Infection (PROSPER), contact + droplet Comment:Automatically added due to negative COVID-19 result. 07/01/2020 07/01/2020 07/15/2020 3:0 8 AM CAPACITY PLANNING MANAGER COVID: Suspected 11/08/2023 11/08/2023 11/08/2023 12:44 PM CDT COVID: Suspected 12/22/2023 12/22/2023 12/22/2023 11:37 AM CDT documented as of this encounter Care Teams Insurance Adjustor Relationship Specialty Start Date End Date Elda Dent PA [address] [facility] [address] [place] [address] PCP - General Internal Medicine 01/09/19 documented as of this encounter
== END 2025-04-17 07:25 | disposition home or self-care (01) ==
LOC: ANHFOHIMG 07:29
PROVIDERS: PCP Physician Assistant; Visit Provider Physician Assistant
DX: Z12.31 Encounter for screening mammogram for malignant neoplasm of breast (principal)
CPT/HCPCS: 77063; 77067